=== PATIENT | female | born 1990 | race Two or more races ===

== ENCOUNTER 2016-10-25 03:51 | Observation (INO) | payer MEDICAID ==
[2016-10-25] MEDS ORDERED: PREN-96 OR (05:00)
== END 2016-10-25 05:20 | disposition home or self-care (01) | DRG 566 ==
LOC: LDRP 03:51
PROVIDERS: ADMIT Specialist; ATTEND Specialist
DX: O26.853 Spotting complicating pregnancy, third trimester (principal); O48.0 Post-term pregnancy; O62.9 Abnormality of forces of labor, unspecified; Z3A.40 40 weeks gestation of pregnancy
CPT/HCPCS: 59025; 81002; G0378

== ENCOUNTER 2016-10-26 12:35 | Observation (INO) | payer MEDICAID ==
[~2016-10-26 12:35] MED LIST: PREN-96 OR
[2016-10-26 13:32] LABS: Basophils # (auto) 0 uL; Basophils % (auto) 0.4 % (0.0-2.0); Eosinophils # (auto) 0.1 uL; Eosinophils % (auto) 0.6 % (0.0-7.0); Hematocrit 37.1 % (36.0-46.0); Hemoglobin 12.1 g/dL (12.2-16.2); Lymphocytes # (auto) 1.2 uL; Lymphocytes % (auto) 13.3 % (10.0-50.0); Mean Corpuscular Hemoglobin 28.8 pg (28.0-32.0); Mean Corpuscular Hgb Conc. 32.5 g/dL (32.0-36.0); Mean Corpuscular Volume 88.6 fL (80.0-100.0); Mean Platelet Volume 8.4 fL (7.4-10.4); Monocytes # (auto) 0.8 uL; Monocytes % (auto) 9.2 % (0.0-12.0); Neutrophils % (auto) 76.5 % (37.0-80.0); Platelet Count (auto) 226 10^3/uL (140-450); Red Cell Distribution Width 13.7 % (11.6-16.0); White Blood Cell 9.1 10^3/uL (4.4-10.8)
[2016-10-26 13:49] LABS: INR 0.97 (0.9-1.15); Partial Thromboplastin Time 27.1 sec (22.64-33.71)
[2016-10-26 13:53] LABS: Urine RBC None Seen /hpf (0 - 4)
[2016-10-26 13:53] LABS: Albumin 2.7 g/dL (3.4-5.0); BUN/Creatinine Ratio 13.6; Bilirubin, Total 0.5 mg/dL (0.2-1.0); Calcium 8.6 mg/dL (8.5-10.1); Potassium 4.2 mmol/L (3.5-5.1); Total Protein 6.4 g/dL (6.4-8.2); Uric Acid 4.9 mg/dL (2.6-6.0)
[2016-10-26 14:09] LABS: Urine Bilirubin Negative (Negative); Urine Blood Negative /uL (Negative); Urine Color Yellow (Yellow); Urine Glucose Normal (Normal); Urine Ketone Negative (Negative); Urine Nitrite Negative (Negative); Urine Squamous Epithelial Cell FEW /hpf (<5); Urine pH 6.5 (5.0-8.0)
== END 2016-10-26 14:45 | disposition home or self-care (01) | DRG 566 ==
LOC: LDRP 12:35
PROVIDERS: ADMIT Obstetrics & Gynecology; ATTEND Obstetrics & Gynecology
DX: O48.0 Post-term pregnancy (principal); O26.893 Other specified pregnancy related conditions, third trimester; R10.9 Unspecified abdominal pain; Z3A.40 40 weeks gestation of pregnancy; Z87.891 Personal history of nicotine dependence
CPT/HCPCS: 36415; 59025; 76818; 80053; 81001; 84550; 85025; 85610; 85730; G0378

== ENCOUNTER 2016-10-28 08:00 | Observation (INO) | payer MEDICAID | END 2016-10-28 10:35 | disposition home or self-care (01) | DRG 566 | LOC: LDRP 08:00 | PROVIDERS: ADMIT Specialist; ATTEND Specialist | DX: O48.0 Post-term pregnancy (principal); Z87.891 Personal history of nicotine dependence; Z3A.40 40 weeks gestation of pregnancy | CPT/HCPCS: 59025; 76818; 81002; G0378 ==

== ENCOUNTER 2016-10-30 09:40 | Inpatient (IN) | payer MEDICAID ==
[~2016-10-30] VITALS: Ht 149 cm; Wt 57.2 kg
[2016-10-30 10:30] LABS: Basophils # (auto) 0 uL; Basophils % (auto) 0.3 % (0.0-2.0); Eosinophils # (auto) 0 uL; Eosinophils % (auto) 0.4 % (0.0-7.0); Hematocrit 37.4 % (36.0-46.0); Hemoglobin 12.1 g/dL (12.2-16.2); Lymphocytes # (auto) 1.1 uL; Lymphocytes % (auto) 9.7 % (10.0-50.0); Mean Corpuscular Hemoglobin 28.9 pg (28.0-32.0); Mean Corpuscular Hgb Conc. 32.3 g/dL (32.0-36.0); Mean Corpuscular Volume 89.3 fL (80.0-100.0); Mean Platelet Volume 8.5 fL (7.4-10.4); Monocytes # (auto) 0.9 uL; Monocytes % (auto) 7.9 % (0.0-12.0); Neutrophils # (auto) 9.6 uL; Neutrophils % (auto) 81.7 % (37.0-80.0); Platelet Count (auto) 217 10^3/uL (140-450); Red Cell Distribution Width 13.1 % (11.6-16.0); White Blood Cell 11.7 10^3/uL (4.4-10.8)
[2016-10-30 10:49] LABS: Urine Bilirubin Negative (Negative); Urine Blood Negative /uL (Negative); Urine Color Yellow (Yellow); Urine Glucose Normal (Normal); Urine Ketone Negative (Negative); Urine Nitrite Negative (Negative); Urine RBC 3 /hpf (0 - 4); Urine Squamous Epithelial Cell FEW /hpf (<5); Urine Urobilinogen Normal (Negative); Urine pH 6.5 (5.0-8.0)
[2016-10-30] MEDS: HYDROmorphone HCL 2 MG/ML VL IV PRN ×2 (10:50→23:35)
[2016-10-30 10:51] LABS: Albumin 2.6 g/dL (3.4-5.0); BUN/Creatinine Ratio 20.8; Bilirubin, Total 0.3 mg/dL (0.2-1.0); Calcium 8.8 mg/dL (8.5-10.1); INR 0.96 (0.9-1.15); Partial Thromboplastin Time 28.5 sec (22.64-33.71); Prothrombin Time 9.9 sec (9.37-12.3); Total Protein 6.3 g/dL (6.4-8.2); Uric Acid 4.3 mg/dL (2.6-6.0)
[2016-10-30] MEDS: LACTATED RINGER'S 1,000 ML IV SCH ×2 (12:11→16:15)
[2016-10-30] MEDS ORDERED: LACT. RINGERS/OXYTOCIN 20UNITS 1,000 ML IV SCH ×2 (12:38→22:15)
[2016-10-30] MEDS ORDERED: PROMETHAZINE HCL 25 MG/ML 1ML IV PRN (12:45)
[2016-10-30] MEDS ORDERED: CARBOPROST TROMETHAMINE 250 MCG/1ML VIAL IM PRN (12:45)
[2016-10-30] MEDS ORDERED: METHYLERGONOVINE MALEATE 0.2 MG/ML AMP IM PRN (12:45)
[2016-10-30] MEDS ORDERED: PHISODERM TOP SOLN 240ML BTL TOP PRN (12:45)
[2016-10-30] MEDS ORDERED: DERMOPLAST 60ML BOTTLE TOP PRN (12:45)
[2016-10-30] MEDS ORDERED: NALBUPHINE HCL 10 MG/1ml INJECTION IV PRN (12:45)
[2016-10-30] MEDS ORDERED: LIDOCAINE 2%HCL (LOCAL ANESTH.) INJ 20ML MDV IJ PRN ×2 (12:45→13:00)
[2016-10-30] MEDS ORDERED: WITCH HAZEL-GLYCERIN PAD TOP PRN (12:45)
[2016-10-30] MEDS ORDERED: TERBUTALINE SULFATE 1 MG/ML 1ML VIAL SC PRN (16:00)
[2016-10-30] MEDS ORDERED: TERBUTALINE SULFATE 1 MG/ML 1ML VIAL SC ONE (20:55)
[2016-10-30] MEDS ORDERED: fentaNYL CITRATE 100 MCG/2 ML VL ONE ×2 (21:07→21:29)
[2016-10-30] MEDS ORDERED: GLYCOPYRROLATE 0.2 MG/ML 1ML VIAL IV ONE (21:10)
[2016-10-30] MEDS ORDERED: PROPOFOL 10 MG/ML 20 ML IV ONE (21:10)
[2016-10-30] MEDS ORDERED: NEOSTIGMINE 1 MG/ML INJ (10mg/10ML VIAL) IV ONE (21:10)
[2016-10-30] MEDS ORDERED: SUCCINYLCHOLINE CHLORIDE 20 MG/ML 10ML VIAL IV ONE (21:19)
[2016-10-30] MEDS ORDERED: ROCURONIUM 10MG/ML 10ML VIAL IV ONE (21:28)
[2016-10-30] MEDS ORDERED: CARBOPROST TROMETHAMINE 250 MCG/1ML VIAL IM ONE (21:33)
[2016-10-30] MEDS ORDERED: ERYTHROMY OPTH OINT 5mg/gm 1gm OP ONE (21:51)
[2016-10-30] MEDS ORDERED: PHYTONADIONE 1MG/0.5ML SYRINGE NEONATAL ONE (21:51)
[2016-10-30] MEDS ORDERED: MORPHINE SULF INJ 2 MG/ML SYRINGE 1ML IV PRN (22:00)
[2016-10-30] MEDS ORDERED: ONDANSETRON HCL 4 MG/2 ML VIAL IV PRN (22:00)
[2016-10-30] MEDS ORDERED: KETOROLAC TROMETH 30 MG/ML 1ML VIAL IV PRN (22:15)
[2016-10-30] MEDS ORDERED: ePHEDrine SULFATE 50 MG/ML AMP IV PRN (22:30)
[2016-10-30] MEDS ORDERED: hydrALAZINE HCL 20 MG/ML VL IV PRN (22:30)
[2016-10-30] MEDS ORDERED: ONDANSETRON HCL 4 MG/2 ML VIAL IV ONE (22:30)
[2016-10-30 23:15] VITALS: BP 125/75
[2016-10-31] VITALS (10 sets, daily range): BP systolic 104–132; BP diastolic 58–80
[2016-10-31 00:59] LABS: Basophils # (auto) 0.1 uL; Basophils % (auto) 0.3 % (0.0-2.0); Eosinophils # (auto) 0 uL; Hematocrit 33.8 % (36.0-46.0); Lymphocytes # (auto) 0.8 uL; Lymphocytes % (auto) 3.8 % (10.0-50.0); Mean Corpuscular Hemoglobin 28.6 pg (28.0-32.0); Mean Corpuscular Hgb Conc. 32.5 g/dL (32.0-36.0); Mean Corpuscular Volume 87.8 fL (80.0-100.0); Mean Platelet Volume 8.4 fL (7.4-10.4); Monocytes # (auto) 1.5 uL; Monocytes % (auto) 7.4 % (0.0-12.0); Neutrophils % (auto) 88.5 % (37.0-80.0); Platelet Count (auto) 238 10^3/uL (140-450); Red Cell Distribution Width 13.6 % (11.6-16.0); White Blood Cell 20.3 10^3/uL (4.4-10.8)
[2016-10-31] MEDS: HYDROmorphone HCL 2 MG/ML VL IV PRN ×4 (05:25→11:26)
[2016-10-31] MEDS ORDERED: ceFAZolin 1GM/50ML D5W 50 ML IV SCH (06:00)
[2016-10-31 06:19] LABS: Basophils # (auto) 0 uL; Basophils % (auto) 0.2 % (0.0-2.0); DEFINITIVE VIEW TRANSMISSION; Eosinophils # (auto) 0 uL; Hematocrit 31.3 % (36.0-46.0); Hemoglobin 10.2 g/dL (12.2-16.2); Lymphocytes # (auto) 1.4 uL; Lymphocytes % (auto) 7.6 % (10.0-50.0); Mean Corpuscular Hemoglobin 29.2 pg (28.0-32.0); Mean Corpuscular Hgb Conc. 32.6 g/dL (32.0-36.0); Mean Corpuscular Volume 89.4 fL (80.0-100.0); Mean Platelet Volume 8.7 fL (7.4-10.4); Monocytes # (auto) 1.8 uL; Neutrophils # (auto) 15.1 uL; Neutrophils % (auto) 82.2 % (37.0-80.0); Platelet Count (auto) 222 10^3/uL (140-450); Red Cell Distribution Width 13.7 % (11.6-16.0); White Blood Cell 18.4 10^3/uL (4.4-10.8)
[2016-10-31] MEDS ORDERED: SIMETHICONE 80 MG CHEWABLE TABLET PO PRN (14:15)
[2016-10-31] MEDS: IBUPROFEN 800 MG TAB PO PRN (14:20)
[2016-10-31] MEDS ORDERED: ceFAZolin 1GM/50ML D5W 50 ML IV ONE (14:30)
[2016-10-31] MEDS: DOCUSATE SOD 100 MG CAP PO SCH ×2 (14:45→21:41)
[2016-10-31] MEDS: HYDROcodone-ACET 5/325MG TAB PO PRN ×2 (15:40→21:41)
[2016-11-01 03:05] VITALS: BP 105/68
[2016-11-01] MEDS: IBUPROFEN 800 MG TAB PO PRN ×2 (05:05→16:15)
[2016-11-01 07:00] VITALS: BP 111/78
[2016-11-01] MEDS: HYDROcodone-ACET 5/325MG TAB PO PRN (11:16)
[2016-11-01] MEDS: DOCUSATE SOD 100 MG CAP PO SCH ×2 (11:16→21:36)
[2016-11-01 11:20] VITALS: BP 115/76
[2016-11-01 16:06] VITALS: BP 107/75
[2016-11-01 18:58] VITALS: BP 107/70
[2016-11-01 23:24] VITALS: BP 116/76
[2016-11-02 03:00] VITALS: BP 113/75
[2016-11-02] MEDS: HYDROcodone-ACET 5/325MG TAB PO PRN (03:57)
[2016-11-02] MEDS: IBUPROFEN 800 MG TAB PO PRN (05:41)
[2016-11-02] MEDS ORDERED: WITCH HAZEL-GLYCERIN PAD TOP ONE (05:45)
[2016-11-02] MEDS ORDERED: WITCH HAZEL-GLYCERIN PAD TOP PRN (06:00)
[2016-11-02 08:00] VITALS: BP 109/65
== END 2016-11-02 13:15 | disposition home or self-care (01) | DRG 540 ==
LOC: OBSVTOIN 09:40 → LDRP 09:40
PROVIDERS: ADMIT Obstetrics & Gynecology; ATTEND Obstetrics & Gynecology
PROC: 10D00Z1 Extraction of Products of Conception, Low, Open Approach (ICD-10-PCS; principal; 2016-10-30 21:10)
DX: O76 Abnormality in fetal heart rate and rhythm complicating labor and delivery (principal); O69.81X0 Labor and delivery complicated by cord around neck, without compression, not applicable or unspecified; Z37.0 Single live birth; Z3A.40 40 weeks gestation of pregnancy
CPT/HCPCS: 36415; 51703; 59025; 76818; 80053; 81001; 81002; 84550; 85025; 85362; 85379; 85610; 85730; 86850; 86900; 86901; 88307; 94762; 96365; 96366; 96372; 96374; J0330; J0690; J1885; J2590; J2704